=== PATIENT | male | born 1945 | race American Indian/Alaskan Native ===

== ENCOUNTER 2019-03-30 06:33 | Day surgery (SDC) | payer MEDICARE ==
[2019-03-30 07:45] LABS: Basophils # (Auto) 0.1 K/mm3 (0.0-0.1); Eosinophils # (Auto) 0.1 K/mm3 (0.0-0.4); Eosinophils % (Auto) 1.4 % (0.0-4.3); Hematocrit 35.8 % (35.5-45.6); Hemoglobin 11.9 gm/dl (11.8-15.2); Lymphocytes # (Auto) 1.5 K/mm3 (1.2-5.4); Lymphocytes % (Auto) 25.2 % (13.4-35.0); Mean Corpuscular HGB Conc 33 % (32-34); Mean Corpuscular Volume 87 fl (84-94); Monocytes # (Auto) 0.9 K/mm3 (0.0-0.8); Platelet Count 251 K/mm3 (140-440); Red Blood Count 4.11 M/mm3 (3.65-5.03); Red Cell Distribution Width 14.1 % (13.2-15.2)
[2019-03-30 07:56] LABS: INR 1.09 (0.87-1.13); Partial Thromboplastin Time 27.7 Sec. (24.2-36.6)
[2019-03-30] MEDS ORDERED: SODIUM CHLORIDE 0.9% 500 ML 500 ML IV SCH (08:00)
[2019-03-30 08:08] LABS: Calcium 9.4 mg/dL (8.4-10.2)
[2019-03-30] MEDS ORDERED: ceFAZolin/Water 2 GM/20 ML 2 GM/20 ML SYRINGE IV ONE (08:27)
[2019-03-30] MEDS ORDERED: HEPARIN/NS 5000 UNIT/500ML 1,000 ML IR ONE (08:27)
[2019-03-30] MEDS: fentaNYL 100 MCG/2 ML INJ ONE ×12 (09:22→11:38)
[2019-03-30] MEDS: LIDOCAINE (2%) 20 MG/1 ML VIAL 20 ML MDV INFILTRATI ONE ×4 (09:22→10:33)
[2019-03-30] MEDS: MIDAZOLAM 2 MG/2 ML INJ ONE ×9 (09:22→11:18)
[2019-03-30] MEDS: HEPARIN 10,000 UNITS/10 ML VIAL ONE ×2 (09:48→10:33)
[2019-03-30] MEDS ORDERED: NITROGLYCERIN SYRINGE 3 ML ONE (09:55)
[2019-03-30] MEDS ORDERED: VERAPAMIL 5 MG/2 ML INJ ONE (09:55)
[2019-03-30] MEDS ORDERED: HEPARIN/NS 5000 UNIT/500ML 500 ML IR ONE (10:06)
--- NOTE | 2019-03-30 12:15 | Short Stay Summary ---
Short Stay Documentation Date of service: 03/30/19 Narrative H&P: See H&P - History H&P: obtained from office - Allergies and Medications Current Medications: Allergies No Known Allergies Allergy (Unverified 03/30/19 06:33) Home Medications Medication Instructions Recorded Confirmed Last Taken Type Ergocalciferol (Vitamin D2) 1 tab PO QWEEK 03/30/19 03/30/19 03/29/19 History [Vitamin D2] 1 tab Finasteride [Proscar] 5 mg PO DAILY 03/30/19 03/30/19 03/29/19 History 5 mg Losartan [Cozaar] 50 mg PO DAILY 03/30/19 03/30/19 03/29/19 History 50 mg Tamsulosin [Flomax] 0.4 mg PO DAILY 03/30/19 03/30/19 03/29/19 History 0.4mg amLODIPine 10 mg PO DAILY 03/30/19 03/30/19 03/29/19 History 10 mg Active Medications Sodium Chloride (Nacl 0.9% 500 Ml) 500 mls @ 50 mls/hr IV DIRECT MARIA GUADALUPE Last Admin: 03/30/19 09:24 Dose: 500 mls Documented by: - Brief post op/procedure progress note Date of procedure: 03/30/19 Pre-op diagnosis: PVD with Right Lower Extremity Gangrene and Rest Pain Post-op diagnosis: same Procedure: 1. Ultrasound-Guided Access Left Common Femoral Artery 2. Right Lower Extremity Arteriogram 3. Atherectomy with Angioplasty Of Right Below-Knee Popliteal Artery with 2.1/3.0 Jetstream Atherectomy Catheter and 4.0 x 150 Grupo Balloon 4. Atherectomy with Angioplasty of Right Peroneal Artery with 2.1/3.0 Jetstream Atherectomy Catheter and 3.0 x 100 Nanocross Balloon In the Distal Peroneal Ar werner and 4.0 x 150 IN.Pact Drug-Coated Balloon In the Proximal Peroneal Artery 5. Ultrasound-Guided Access Right Posterior Tibial Artery 6. Angioplasty of the Right Posterior Tibial Artery with a 3.0-2.5 x 220 Tapered Nanocross Balloon In the Distal Posterior Tibial Artery and a 4.0 x 150 4.0 x 150 IN.Pact Drug-Coated Balloon In the Proximal Posterior Tibial Artery 7. Angioplasty of the SFA with a 6.0 x 80 and 6.0 x 150 IN.Pact Drug-Coated Balloon 8. Closure of Left Femoral Arteriotomy with ProGlide Closure Device 9. Radiologic Supervision with Interpretation Anesthesia: local, other (Monitored Moderate Sedation) Surgeon: FARHAN ROJAS Estimated blood loss: minimal Pathology: none Condition: stable - Disposition Condition at discharge: Good Disposition: [id number] TO HOME OR SELFCARE Short Stay Discharge Plan Activity: other (No Strenuous Activity for 24 Hours) Wound: remove dressing (24 hours) Follow up with: ROSALIO SILVERMAN MD [Staff Physician] - 14 Days Prescriptions: Aspirin EC [Halfprin EC] 81 mg PO QDAY #90 tablet. HYDROcodone/APAP 7.5-325 [[place] 7.5/325] 1 each PO Q6HR PRN #30 tablet PRN Reason: Pain Clopidogrel [Plavix] 75 mg PO QDAY #90 tablet
[2019-03-30] MEDS ORDERED: CLOPIDOGREL 300 MG TAB PO ONE (12:19)
[2019-03-30] MEDS ORDERED: HYDROcodone/ACETAMINOPHEN 5-325 MG TAB PO PRN (12:19)
[2019-03-30] MEDS ORDERED: NITROGLYCERIN 2% OINT 1 GM TP ONE (12:25)
--- NOTE | 2019-03-30 12:28 | Operative Report ---
Operative Report Operative Report: Date of Procedure: 03/30/2019 Pre-operative Diagnosis: Peripheral Vascular Disease with Right Lower Extremity Rest Pain and Gangrene Post-operative Diagnosis: Same Procedure(s): 1. Ultrasound-Guided Access Left Common Femoral Artery 2. Right Lower Extremity Arteriogram 3. Atherectomy with Angioplasty Of Right Below-Knee Popliteal Artery with 2.1/3.0 Jetstream Atherectomy Catheter and 4.0 x 150 Grupo Balloon 4. Atherectomy with Angioplasty of Right Peroneal Artery with 2.1/3.0 Jetstream Atherectomy Catheter and 3.0 x 100 Nanocross Balloon In the Distal Peroneal Artery and 4.0 x 150 IN.Pact Drug-Coated Balloon In the Proximal Peroneal Artery 5. Ultrasound-Guided Access Right Posterior Tibial Artery 6. Angioplasty of the Right Posterior Tibial Artery with a 3.0-2.5 x 210 Tapered Nanocross Balloon In the Distal Posterior Tibial Artery and a 4.0 x 150 IN.Pact Drug-Coated Balloon In the Proximal Posterior Tibial Artery 7. Angioplasty of the SFA with a 6.0 x 80 and 6.0 x 150 IN.Pact Drug-Coated Balloon 8. Closure of Left Femoral Arteriotomy with ProGlide Closure Device 9. Radiologic Supervision with Interpretation Surgeon: Jacky Washburn M.D. Reverberatory Skimmer: None Anesthesia: Local/Monitored Moderate Sedation EBL: Minimal Counts: Correct Complications: None Condition: Stable Specimen: None Indication: The patient is a 73-year-old male with a history of peripheral vascular disease who developed gangrene in his right fifth toe. He eventually progressed to rest pain and is in need of intervention to improve his pain and prevent progression to amputation. He was given the risk, benefits, and alternative procedures and consented to the procedure. Angiographic Findings: The right common iliac artery, external iliac artery and hypogastric artery were all patent without flow-limiting stenosis. The right common femoral artery and profunda were patent without flow-limiting stenosis. The right SFA was diffusely diseased with multiple areas of stenosis ranging from 30 to 75%. The above-knee popliteal artery was patent without significant flow-limiting stenosis. There was an occlusion of the below-knee popliteal artery and the anterior tibial artery was occluded without any evidence of reconstitution of flow throughout the artery as well as in the dorsalis pedis artery. The peroneal artery reconstituted in the mid calf it was patent with 50 to 60% stenosis throughout the remainder of the artery. The posterior tibial artery reconstituted in the mid calf and was patent with 50 to 80% stenosis throughout the remainder of the artery. After intervention the SFA had approximately 20% residual stenosis. The below-knee popliteal artery had less than 15% residual stenosis. The peroneal and posterior tibial arteries both had less than 20% residual stenosis. Description of Procedure: The patient was brought to the [facility] and laid in supine position. After a timeout was performed the patient's left groin and right foot and calf were prepped and draped in normal sterile fashion. Ultrasound was used to identify the right common femoral artery and confirm patency. Once patency was confirmed the overlying skin and soft tissue was anesthetized with lidocaine. A small stab incision was made and then a curved hemostat was used with ultrasound g uidance to dissect bluntly down to the anterior surface of the left common femoral artery. Micropuncture technique was used with ultrasound guidance to enter the left common femoral artery and after removing the wire and dilator a 0.035 Bentson wire was advanced into the aorta and the micropuncture sheath was exchanged for a 5 Tanzanian sheath by Seldinger technique. An Omni Flush catheter was advanced into the aorta and an aortogram was performed to identify the bifurcation and then the Bentson wire and Omni Flush catheter were advanced up and over the bifurcation and the right lower extremity arteriogram was performed to identify the anatomy. The Bentson wire was advanced into the distal SFA and the 5 Tanzanian sheath was exchanged for a 7 Tanzanian 65 cm destination sheath by Seldinger technique. At this point the patient was systemically heparinized with 5000 units of heparin IV and this was redosed with 1000 units of heparin every 45 minutes until the completion of the case. I advanced a 5 [place] Navicross catheter over the Bentson wire and exchanged the Bentson wire for a 0.018 V18 wire and advanced this into the distal popliteal artery. I was able to use the wire catheter to traverse the occlusion and reenter the patent portion of the peroneal artery which was confirmed by arteriogram. I exchanged the V 18 wire for a 0.014 ThruWay wire and performed atherectomy of the below- knee popliteal artery and occluded portion of the peroneal artery using a 2.1/3.0 Jetstream Atherectomy Catheter with both blades down and blades up in the popliteal artery and only blades down in the peroneal artery. I performed angioplasty of the proximal peroneal artery and below-knee popliteal artery with a 4 x 150 Grupo balloon. I then performed angioplasty of the distal peroneal artery with a 3 x 100 balloon. The follow-up angiogram revealed significant residual stenosis in the proximal peroneal artery so I used a 4 x 150 IN.Pact Drug-Coated Balloon to perform additional angioplasty in the proximal peroneal artery. This resulted in less than 20% residual stenosis. I made attempts to cannulate the posterior tibial artery in antegrade fashion without success so I decided to gain retrograde access. I used ultrasound to identify the posterior tibial artery in the distal one third of the calf. I anesthetized the skin and overlying soft tissue with lidocaine and used micropuncture technique to access the artery. I advanced the dilator of the micropuncture sheath into the artery and then exchanged the micropuncture wire for the V 18 wire and advanced this across the occluded portion of the posterior tibial artery and into the SFA at the level of the sheath. I removed the dilator and advanced the NaviCross catheter, bareback, over the wire and up to the sheath. I used the catheter to cannulate the sheath and advanced the V 18 wire through the sheath and out through the left groin. I pulled the [place] cross catheter off of the wire and then turned the catheter and advanced it over the wire through the sheath and down through the posterior tibial artery and antegrade fashion. I remove the V 18 wire and advanced a 0.014 Choice PT wire through the catheter and into the pedal arch. I performed angioplasty of the distal portion of the posterior tibial artery with a3.0-2.5 x 210 Tapered Nanocross Balloon with a result of less than 15% residual stenosis. I then performed angioplasty of the proximal portion of the posterior tibial artery with a 4 x 150 IN.Pact Drug-Coated Balloon with a result of less than 20% residual stenosis. I pulled the sheath into the common femoral artery and then performed angioplasty of the mid and proximal SFA using a 6 x 150 and a 6 x 80 IN.Pact Drug-Coated Balloon in overlapping fashion. The follow-up arteriogram revealed approximately 20% residual stenosis in one area in the proximal SFA however the remaining lesions had less than 15% residual stenosis. I exchanged the wire for the MOF [employer] wire and pulled the sheath back into the left external iliac artery. I advanced the wire into the aorta and then I used the Pro-glide closure device to close the left femoral arteriotomy. A sterile dressing was then applied to the groin entry site. The patient tolerated the procedure well and was transported to the recovery area in stable condition.
[2019-03-30] MEDS ORDERED: CLOPIDOGREL 300 MG TAB ONE (12:39)
[2019-03-30 13:29] VITALS: BP 132/63
== END 2019-03-30 14:15 | disposition home or self-care (01) ==
LOC: CATHLABREC 06:33
PROVIDERS: ATTEND Surgery Vascular Surgery
DX: I73.9 Peripheral vascular disease, unspecified (principal); I10 Essential (primary) hypertension; Z79.899 Other long term (current) drug therapy; Z87.891 Personal history of nicotine dependence; Z98.890 Other specified postprocedural states; Z79.82 Long term (current) use of aspirin
CPT/HCPCS: 36415; 37225; 37229; 37232; 75710; 76937; 80048; 85025; 85610; 85730; C1724; C1725; C1760; C1769; C1887; C1894; C2623; J0690; J1644; J2250; J3010; J7040; Q9967